=== PATIENT | male | born 1985 | race Caucasian/White ===

== ENCOUNTER 2023-04-18 02:35 | Emergency (ER) | payer SELFPAY ==
[2023-04-18 03:04] VITALS: BP 130/88; PULSE 78; RESP 18; TEMP 97.9
[2023-04-18] MEDS ORDERED: HYDROcodone/APAP 7.5-325MG 1 EACH TAB PO ONE (03:18)
[2023-04-18] MEDS ORDERED: KETOROLAC 15 MG/ML 1 ML VIAL IM STA (03:18)
--- NOTE | 2023-04-18 04:06 | ED ---
Lower Extremity Injury HPI - General Chief Complaint: Extremity Injury, Lower Stated Complaint: Right ankle Injury Time Seen by Provider: 04/18/23 03:14 Source: patient Mode of arrival: ambulatory Limitations: no limitations - History of Present Illness Initial Comments: 37-year-old male presenting with chief complaint of right ankle pain. Patient slipped when getting out of his truck and landed and inversion. He is having pain and swelling to the lateral portion of the ankle. He is unable to weight- bear. No numbness or tingling. - Related Data Allergies Allergy/AdvReac Type Severity Reaction Status Date / Time No Known Allergies Allergy Verified 04/18/23 02:57 Review of Systems ROS Statement: Those systems with pertinent positive or pertinent negative responses have been documented in the HPI. ROS Other: All systems not noted in ROS Statement are negative. Past Medical History Past Medical History: No Reported History History of Any Multi-Drug Resistant Organisms: None Reported Past Surgical History: No Surgical Hx Reported Past Psychological History: No Psychological Hx Reported Smoking Status: Current every day smoker Past Alcohol Use History: Occasional Past Drug Use History: None Reported General Exam Limitations: no limitations General appearance: alert, in no apparent distress Head exam: Present: atraumatic, normocephalic, normal inspection Eye exam: Present: normal appearance, EOMI Neck exam: Present: normal inspection, full ROM Respiratory exam: Absent: respiratory distress Right Ankle exam: Present: tenderness, swelling. Absent: full ROM Neurovascular tendon exam: Present: no vascular compromise Neurological exam: Present: alert, oriented X3 Psychiatric exam: Present: normal affect, normal mood Skin exam: Present: warm, dry, intact, normal color. Absent: rash Course Vital Signs 04/18/23 02:55 Temperature 97.9 F Pulse Rate 78 Respiratory 18 Rate Blood Pressure 130/88 O2 Sat by Pulse 99 Oximetry Medical Decision Making - Medical Decision Making Was pt. sent in by a medical professional or institution (, PA, RETAIL [employer] SALES BEAUTY ADVISOR, urgent care, hospital, or shelter...) When possible be specific @ -No Did you speak to anyone other than the patient for history (EMS, parent, family, police, friend...)? What history was obtained from this source @ -No Did you review nursing and triage notes (agree or disagree)? Why? @ -I reviewed and agree with nursing and triage notes Were old charts reviewed (outside hosp., previous admission, EMS record, old EKG, old radiological studies, urgent care reports/EKG's, shelter records)? Report findings @ -No old charts were reviewed Differential Diagnosis (chest pain, altered mental status, abdominal pain women, abdominal pain men, vaginal bleeding, weakness, fever, dyspnea, syncope, headache, dizziness, GI bleed, back pain, seizure, CVA, palpatations, mental health, musculoskeletal)? @ -Differential Musculoskeletal Muscular strain, contusion, ligament sprain, fracture, arthritis, septic arthritis, bursitis, cellulitis, muscle spasm, nerve compression, DVT, arterial occlusion, herpes zoster, electrolyte abnormality, tumor.... This is not meant to be in all inclusive list EKG interpreted by me (3pts min.). @ -As above X-rays interpreted by me (1pt min.). @ -Ankle x-ray shows oblique fracture lateral malleolus CT interpreted by me (1pt min.). @ -None done U/S interpreted by me (1pt. min.). @ -None done What testing was considered but not performed or refused? (CT, X-rays, U/S, labs)? Why? @ -None What meds were considered but not given or refused? Why? @ -None Did you discuss the management of the patient with other professionals (professionals i.e. , PA, [employer] SALES BEAUTY ADVISOR, lab, RT, psych nurse, psychosocial rehabilitation counselor, lumber chain offbearer, teacher, associate loan officer, corrections caseworker)? Give summary @ -No Was smoking cessation discussed for >3mins.? @ -No Was critical care preformed (if so, how long)? @ -No Were there social determinants of health that impacted care today? How? (Homelessness, low income, unemployed, alcoholism, drug addiction, transportation, low edu. Level, literacy, decrease access to med. care, longterm, rehab)? @ -No Was there de-escalation of care discussed even if they declined (Discuss DNR or withdrawal of care, Hospice)? DNR status @ -No What co-morbidities impacted this encounter? (DM, HTN, Smoking, COPD, CAD, Cancer, CVA, ARF, Chemo, Hep., AIDS, mental health diagnosis, sleep apnea, morbid obesity)? @ -None Was patient admitted / discharged? Hospital course, mention meds given and route, prescriptions, significant lab abnormalities, going to OR and other pertinent info. @ -37-year-old male presenting with chief complaint of right ankle pain. Patient had an injury getting out of his truck. He is neurovascularly intact. X-ray shows lateral malleolus fracture. Patient is placed in a splint and instructed to follow up with orthopedics. Follow-up with PCP. Report back to ER with any new or worsening symptoms. Discussed return parameters and answered all questions. Patient conveyed verbal understanding and agreed to the plan. I discussed this case in detail with my attending Dr. Brothers Undiagnosed new problem with uncertain prognosis? @ -No Drug Therapy requiring intensive monitoring for toxicity (Heparin, Nitro, Insulin, Cardizem)? @ -No Were any procedures done? @ -No Diagnosis/symptom? @ -Ankle fracture Acute, or Chronic, or Acute on Chronic? @ -Acute Uncomplicated (without systemic symptoms) or Complicated (systemic symptoms)? @ -Uncomplicated Side effects of treatment? @ -No Exacerbation, Progression, or Severe Exacerbation? @ -No Poses a threat to life or bodily function? How? (Chest pain, [place], [place], pneumonia, PE, COPD, DKA, ARF, appy, cholecystitis, CVA, Diverticulitis, Homicidal, Suicidal, threat to staff... and all critical care pts) @ -No Disposition Clinical Impression: Fibula fracture Disposition: HOME SELF-CARE Condition: Good Instructions (If sedation given, give patient instructions): Ankle Fracture (ED) Additional Instructions: Follow up with orthopedics. Report back to ER with any new or worsening symptoms. Take Motrin and Tylenol as needed. Rest, ice, elevate the ankle. Is patient prescribed a controlled substance at d/c from ED?: No Referrals: None,Stated [Primary Care Provider] - 1-2 days Roderick Oconnor DO [Doctor of Osteopathic Medicine] - 1-2 days Time of Disposition: 04:05
[2023-04-18] MEDS ORDERED: IBUPROFEN 600 MG TAB PO STA (04:09)
--- NOTE | 2023-04-18 08:02 | XR ---
EXAMINATION TYPE: XR ankle complete RT DATE OF EXAM: 04/18/2023 COMPARISON: None HISTORY: Injury, pain TECHNIQUE: 3 view right ankle FINDINGS: There is an oblique fracture of the distal metaphyseal fibula. The ankle mortise appears in tact. Soft tissue swelling is over the lateral malleolus. IMPRESSION: 1. Oblique fracture lateral malleolus.
== END 2023-04-18 04:22 | disposition home or self-care (01) ==
LOC: EC 02:35
DX: S82.401A Unspecified fracture of shaft of right fibula, initial encounter for closed fracture (principal); F17.200 Nicotine dependence, unspecified, uncomplicated; X50.9XXA Other and unspecified overexertion or strenuous movements or postures, initial encounter
CPT/HCPCS: 99283

== ENCOUNTER 2023-04-28 11:08 | Day surgery (SDC) | payer SELFPAY ==
--- NOTE | 2023-04-27 10:38 | P.HPOR ---
History of Present Illness H&P Date: 04/27/23 Subjective: This is a 48 year old male that presents today for initial evaluation regarding a right ankle injury that occurred on 04/18/2023 when he was stepping out of his truck and twisted and rolled his ankle. He had immediate pain and swelling and inability to bear weight on the extremity. He denies any other areas of pain. He was seen in the emergency department where x-rays were taken and he was placed in a splint and he has been using crutches and has been non weightbearing since his initial injury. He denies any prior injury to this ankle in the past.He works as a reinoso. He does have an extensive history regarding a injury that occurred on the left ankle years ago that was treated with multiple surgeries by Mazin Aceves, which he is healed from. Objective: RLE: 09/18 EHL/FHL/PF/DF. SILT L5-S1. 2+/4 DP/PT pulses palpated. TTP over lateral malleolus with bruising and swelling present. Imaging: X-Rays of the right ankle 3V taken in office today demonstrates an isolated oblique lateral malleolar fracture with proximal 5 mm of displacement with 3mm of lateral talar shift. Impression: 1.)Right ankle lateral malleolus fracture Plan: Diagnosis and treatment options were discussed with the patient. Due to the amount of displacement and lateral talar shift seen on x-rays today I recommend surgical intervention in the form of a right distal fibula open reduction internal fixation. Risks and benefits of surgery including bleeding, infection, damage to surrounding tissue, need for further surgery, residual numbness were discussed and the patient wished to go forward with surgery. The patient was agreeable with this plan. He is placed in a fracture boot and is to rest, ice and elevate the extremity. Surgery is scheduled for 04/28/23. -Roderick Oconnor DO Orthopedic Hand/Upper Extremity Surgeon Past Medical History Past Medical History: No Reported History History of Any Multi-Drug Resistant Organisms: None Reported Past Surgical History: Orthopedic Surgery Additional Past Surgical History / Comment(s): collar bone and lft ankle Past Anesthesia/Blood Transfusion Reactions: No Reported Reaction Smoking Status: Current every day smoker - Past Family History Sister(s) Family Medical History: Cancer Additional Family Medical History / Comment(s): breast Medications and Allergies Home Medications Medication Instructions Recorded Confirmed Type No Known Home Medications 04/23/23 04/23/23 History Allergies Allergy/AdvReac Type Severity Reaction Status Date / Time No Known Allergies Allergy Verified 04/23/23 10:16 Physical Examination Osteopathic Statement: *. No significant issues noted on an osteopathic structural exam other than those noted in the History and Physical/Consult.
[~2023-04-28 11:08] MED LIST: DEXAMETHASONE SOD PHOSPHATE 4 MG/ML 1 ML VIAL IV ONE; LACTATED RINGERS 1,000 ML IV SCH; LIDOCAINE 1% (10MG/ML) FOR IV START INTRADERMA PRN; MIDAZOLAM 2 MG/2 ML VIAL IV PRN; ONDANSETRON 4 MG/2 ML VIAL IVP ONE
[2023-04-28] MEDS ORDERED: ONDANSETRON 4 MG/2 ML VIAL ONE (13:03)
[2023-04-28] MEDS ORDERED: fentaNYL (PF) 50 MCG/ML 2 ML AMP IVP ONE ×2 (13:05→13:10)
[2023-04-28] MEDS ORDERED: SUCCINYLCHOLINE CHLORIDE 200 MG/10 ML VIAL IV ONE (14:09)
[2023-04-28] MEDS ORDERED: LIDOCAINE 1% INJ 10MG/ML (20 ML MDV) ONE (14:09)
[2023-04-28] MEDS ORDERED: PROPOFOL 10 MG/ML 20 ML VIAL IV ONE (14:09)
[2023-04-28] MEDS ORDERED: fentaNYL (PF) 50 MCG/ML 2 ML AMP ONE (14:09)
[2023-04-28] MEDS ORDERED: MIDAZOLAM 2 MG/2 ML VIAL ONE (14:09)
[2023-04-28] MEDS ORDERED: HYDROmorphone (PF) 1 MG/ML ONE (14:09)
[2023-04-28] MEDS ORDERED: LACTATED RINGERS 1,000 ML IV ONE (14:40)
[2023-04-28] MEDS ORDERED: BUPIVACAINE (PF) 0.5% 30 ML VIAL SQ ONE ×2 (15:33→15:35)
--- NOTE | 2023-04-28 16:08 | P.OP ---
Date of Procedure: 04/28/23 Preoperative Diagnosis: 1.) Right ankle distal fibula fracture. Postoperative Diagnosis: 1.) Right ankle distal fibula fracture. Procedure(s) Performed: Open reduction internal fixation of right distal fibula fracture Implants: Carlos locking distal fibula plate Anesthesia: ANDREZ Surgeon: Roderick Oconnor Education And Training Coordinator #1: Semaj Veliz Estimated Blood Loss (ml): 10 Pathology: none sent Condition: stable Disposition: PACU Description of Procedure: This is a 37 year old male who sustained a right distal fibular fracture and presents today for surgical intervention due to displacement and instability of her fracture pattern. Risks and benefits of surgery were discussed with the patient including bleeding, damage to surrounding tissue, infection, need for further surgery as well as risks of anesthesia including pulmonary embolism and even and the patient wished to proceed with surgical intervention. The patient was seen in the pre-operative area by myself. Consent and H&P were completed and updated. The correct extremity was marked in the pre-operative area by myself and all other questions were answered. Operative Narrative: The patient was brought to the operating room by the department of anesthesia. They were transferred safely to the operating table, all bony prominences were well padded. Bone foam was placed under the operative leg and a bump under the ipsilateral hip was placed. Pre-operative antibiotics were given prior to skin incision. The patient was then drifted off to sleep by the department of anesthesia. A nonsterile tourniquet was then applied to the operative extremity and the left lower extremity was then prepped and draped in normal sterile fashion. Pre-operative time out was performed indicating the correct patient, procedure and laterality. All in the room agreed. The operative extremity was the exsanguinated with an esmarch bandage and the tourniquet was inflated to 250mmHg. Lateral incision centered over the lateral fibula was made with 15 blade scalpel. Blunt dissection down through subcutaneous tissues was performed with [place] scissors and bovie cautery was utilized for hemostasis. Periosteum was incised along the lateral boarder of the distal fibula to reveal the oblique fracture pattern of the distal fibula. Care was taken to bluntly dissect proximally to avoid disrupting any possible branches of the superficial peroneal nerve. There was anterior comminution at the hayden-inferior portion of the fracture. Irrigation, [place] tip suction and curette was used to distract the fracture fragments and clear out the fracture hematoma and small minal pieces of comminution present anterior that were blocking reduction of the 2 main fragments as well as some of the periosteum interposed. Focus was then on achieving interfragmentary compression with lag screw across the fracture site. Pointed reduction clamp was used to reduce the fracture fragments and length and rotation was restored. Using a drill sleeve guide, a 3.5 mm glide hole was drilled in the near cortex perpendicular to the fracture site followed by a 2.5mm far cortex hole and a 3.5mm lag screw was inserted across the fracture site with good compression. Pointed reduction clamp was removed and no fracture movement was appreciated. A [place] distal fibular locking plate was then pinned into place to work as a neutralization plate. Nonlocking screws were drilled proximally and unicortical drilling was performed distal to the fracture site in order to avoid the distal talofibular articulation. Adequate plate contour and reduction was appreciated on imaging after all screws were inserted. After adequate fixation of the distal fibula fracture an external rotation stress test was performed and there was no appreciable gapping of the medial clear space and no widening of the syndesmosis. Cotton test was performed and no gapping at the syndesmosis was appreciated. The wound was then copiously irrigated and subcutaneous closure was performed with 2-0 Vicryl followed by 3-0 Nylon suture on skin in a horizontal mattress fashion. 20cc's of 0.5% Bupivicaine was injected into the surrounding soft tissues. Sterile dressing consisting of Adaptic, ABD, cast padding and AO plaster splint was applied. The patient was then woken by the department of anesthesia and transferred to PACU in stable condition. Semaj KELSEY was present for the case and assisted in major portions of the case and assisted in fracture reduction, retraction and placement of hardware and protection of vital neurovascular structures. Roderick Oconnor D.O. Orthopedic Surgeon
[2023-04-28] MEDS: HYDROmorphone 0.5 MG/0.5 ML SYRINGE IVP PRN ×2 (16:16→16:29)
[2023-04-28 16:17] VITALS: TEMP 96.9
[2023-04-28 16:41] VITALS: RESP 18
[2023-04-28] MEDS ORDERED: oxyCODONE-APAP 5-325MG 1 EACH TAB ONE (16:43)
[2023-04-28] MEDS ORDERED: oxyCODONE-APAP 5-325MG 1 EACH TAB PO ONE (16:45)
[2023-04-28 17:29] VITALS: BP 119/64; PULSE 56
--- NOTE | 2023-04-29 08:08 | XR ---
EXAMINATION TYPE: XR ankle complete RT DATE OF EXAM: 04/28/2023 COMPARISON: NONE HISTORY: Intraoperative ORIF FINDINGS: 11 views of the ankle demonstrate fracture of the fibula with subsequent postoperative changes.. IMPRESSION: 1. ORIF distal fibula
--- NOTE | 2023-04-29 08:20 | FL ---
EXAMINATION TYPE: FL guidance operating room DATE OF EXAM: 04/28/2023 HISTORY: Fluoroscopy time Total dose area product (DAP) in uGy*m?, mGy*cm? (or similar): 0.1766 IMPRESSION: 1. Fluoroscopy time.
== END 2023-04-28 17:25 | disposition home or self-care (01) ==
LOC: OR 11:08
PROVIDERS: ATTEND Orthopaedic Surgery Hand Surgery
DX: S82.61XA Displaced fracture of lateral malleolus of right fibula, initial encounter for closed fracture (principal); F17.210 Nicotine dependence, cigarettes, uncomplicated; Z80.3 Family history of malignant neoplasm of breast; Z98.890 Other specified postprocedural states; X58.XXXA Exposure to other specified factors, initial encounter
CPT/HCPCS: 73610; 27792; C1713; J2250; J0330; J1100; J0690; J2405; J2001; J3010; J1170 ×2; J2704; J0665